=== PATIENT | male | born 1980 | race Caucasian/White ===

== ENCOUNTER 2020-04-13 11:30 | Emergency (ER) | payer BC, MEDICAID ==
[~2020-04-13] VITALS: Ht 162.6 cm; Wt 80.7 kg
[2020-04-13 11:30] VITALS: BP 131/61; Ht 162.6 cm; Wt 80.7 kg
== END 2020-04-13 13:43 | disposition home or self-care (01) ==
LOC: ED 11:30
DX: J02.9 Acute pharyngitis, unspecified (principal); U07.1 COVID-19
CPT/HCPCS: Q0092

== ENCOUNTER 2020-08-06 10:23 | Emergency (ER) | payer BC, MEDICAID ==
[2020-08-06 12:46] VITALS: BP 143/95
== END 2020-08-06 12:46 | disposition home or self-care (01) ==
LOC: ED 10:23
DX: M54.5 Low back pain (principal)
CPT/HCPCS: J1885